=== PATIENT | female | born 1995 ===

== ENCOUNTER → 2020-09-12 | Outpatient (CLI) | payer BC | LOC: COL.RAD 12:45 | DX: M25.532 Pain in left wrist (principal) | CPT/HCPCS: A9585; Q9967 ==

== ENCOUNTER 2021-11-21 10:40 | Inpatient (IN) | payer BC ==
[~2021-11-21] VITALS: Ht 165.1 cm; Wt 94.1 kg
[2021-11-24] VITALS (17 sets, daily range): BP systolic 95–127; BP diastolic 52–83; PULSE 50–89; TEMP 97.4–98.1
[2021-11-24] MEDS ORDERED: PRENATAL TABLET PO (06:24)
[2021-11-24 06:29] LABS: BASO # 0.1 K/mm3 (0.0-0.2); BASO % 0.5 % (0.0-2.0); EOS # 0.1 K/mm3 (0.0-0.7); EOS % 0.9 % (0.0-4.0); GRAN # 6.1 K/mm3 (1.4-6.5); GRAN % 66.4 % (42.2-75.2); HEMATOCRIT 39.3 % (37.0-47.0); HEMOGLOBIN 13.4 g/dl (12.5-16.0); LYMPH # 2.1 K/mm3 (1.2-3.4); LYMPH % 22.9 % (20.0-51.0); MEAN CELL VOLUME 85 fl (80.0-100.0); MEAN CORPUSCULAR HEMOGLOBIN 29 pg (27-31); MEAN CORPUSCULAR HGB CONC 34 g/dl (33.0-37.0); MEAN PLATELET VOLUME 11.8 fl (7.4-10.4); MONO # 0.8 K/mm3 (0.1-0.6); MONO % 8.9 % (1.7-9.3); PLATELET COUNT 211 K/mm3 (130-400); RED BLOOD COUNT 4.65 M/mm3 (4.10-5.30); REDCELL DISTRIBUTION WIDTH-CV 14.1 % (11.5-14.5)
[2021-11-24] MEDS ORDERED: MOTRIN 800800 MG/TAB PO (12:50)
[2021-11-24] MEDS ORDERED: PERCOCET 325 MG1 TA2 PO (12:50)
--- NOTE | 2021-11-24 14:35 | NUR ---
THIS RN INTO ROOM TO GET MOM UP TO BATHROOM/ PT ABLE TO MOVE LEGS AND HOLD THEM UP IN BED FOR 5 SECONDS EACH SIDE. PT STATES LEGS ARE NO LONGER TINGLY AND SHE IS READY TO GET UP. PT SITTING UP IN BED DANGLING LEGS AND FEELS GOOD. PT THEN STANDS WITH THE NURSE ASSISTING AND DOES WELL. PT WALKS TO BATHROOM WITH STANDBY ASSIST OF THIS RN. JAMES D/C, [facility] PROVIDED, PAD AND ICE PACK APPLIED. DECLINES TUCKS AT THIS TIME. BINDER CHANGED AND GOT A CLEAN ONE. GOWN CHANGED. SHEETS WERE CHANGED ON BED AND CHUCKS CHANGED WELL. PT BACK TO BED INDEPENDENTLY. OXYCODONE GIVEN AND PT STATES SHE WILL TAKE A NAP.
[2021-11-25 00:07] VITALS: BP 18/65; PULSE 74; TEMP 98.5
[2021-11-25 04:25] VITALS: BP 117/73; PULSE 69; TEMP 98.1
--- NOTE | 2021-11-25 09:25 | NUR ---
Initial visit attempt; Parents ressting, Pre Sales Systems Engineer left card offering congratulations and God's blessings for the of their son along with information regarding the availability of spiritual care at our hospital.
[2021-11-25 10:10] VITALS: BP 137/85; PULSE 97; TEMP 98.1
[2021-11-25 16:05] VITALS: BP 130/83; PULSE 95; TEMP 97.6
--- NOTE | 2021-11-25 20:00 | NUR ---
PT STATES NAUSEA AND STOMACH UPSET, PT DECLINES ZOFRAN AT THIS TIME BUT CONFIRMED UNDERSTANDING CAN ASK FOR IF DESIRED. PT STATES SHE TOOK HER OWN TUMS AND 'WILL SEE HOW THAT WORKS'. PT STATES LIKELY DOESNT FEEL WELL FROM DINNER BROUGHT BY .
[2021-11-25 20:08] VITALS: BP 132/77; PULSE 63; TEMP 98.6
[2021-11-26 08:30] VITALS: BP 120/78; PULSE 88; TEMP 97.4
== END 2021-11-26 12:20 | disposition home or self-care (01) | DRG 788 ==
LOC: OB 11-24 05:27 → LDR 11-24 10:39 → OB 11-26 12:20
PROVIDERS: ADMIT Obstetrics & Gynecology
PROC: 10D00Z1 Extraction of Products of Conception, Low, Open Approach (ICD-10-PCS; principal; 2021-11-24)
DX: O32.1XX0 Maternal care for breech presentation, not applicable or unspecified (principal); O99.213 Obesity complicating pregnancy, third trimester; Z3A.39 39 weeks gestation of pregnancy; Z37.0 Single live birth; Z86.14 Personal history of Methicillin resistant Staphylococcus aureus infection; Z87.891 Personal history of nicotine dependence; Z90.49 Acquired absence of other specified parts of digestive tract
CPT/HCPCS: J0171; J0690; J1885; J2175; J2405; J2590; J7120

== ENCOUNTER → 2024-06-02 | Outpatient (CLI) | payer BC ==
[~2024-06-02] MED LIST: MOTRIN 800800 MG/TAB PO; PERCOCET 325 MG1 TA2 PO; PRENATAL TABLET PO
== END ==
LOC: COL.LAB 08:22
DX: Z32.00 Encounter for pregnancy test, result unknown (principal)